=== PATIENT | male | born 1990 | race Caucasian/White ===

== ENCOUNTER 2019-11-20 15:18 | Emergency (ER) | payer SELFPAY ==
[~2019-11-20] VITALS: Wt 65.8 kg
[2019-11-20] MEDS ORDERED: METHOCARBAMOL500 M1 PO (17:45)
[2019-11-20] MEDS ORDERED: NAPROSYN500 MG PO (17:45)
== END 2019-11-20 17:53 | disposition home or self-care (01) ==
LOC: ED 15:18
DX: S22.41XA Multiple fractures of ribs, right side, initial encounter for closed fracture (principal); W01.0XXA Fall on same level from slipping, tripping and stumbling without subsequent striking against object, initial encounter; Y93.89 Activity, other specified; Y92.89 Other specified places as the place of occurrence of the external cause; Y99.8 Other external cause status